=== PATIENT | female | born 1945 | race Caucasian/White ===

== ENCOUNTER 2023-06-04 12:37 | Emergency (ER) | payer OTHER, SELFPAY ==
[2023-06-04 12:49] VITALS: BP 124/46; BP 133/98; PULSE 62; PULSE 68; RESP 16; TEMP 37.1; O2SAT 100; O2SAT 94; BMI 22.3
--- NOTE | 2023-06-04 12:55 | ECG_ITS ---
Test Reason : siezure Blood Pressure : / mmHG Vent. Rate : 061 BPM Atrial Rate : 061 BPM P-R Int : 132 ms QRS Dur : 070 ms QT Int : 440 ms P-R-T Axes : 060 029 009 degrees QTc Int : 442 ms Normal sinus rhythm with sinus arrhythmia Low voltage QRS Borderline ECG No previous ECGs available Referred By: Chandler Campuzano Electronically Signed By:MENDEL ANGEL MD
--- NOTE | 2023-06-04 13:00 | PC.NURSE ---
Addendum entered by Jose Ceja 06/04/23 14:44: refuses iv placement. pt straight cathed per order. Original Note: pt arrived via ems from adult day care where they reported found pt foaming from mouth eyes rolled back; duration approx 60 seconds. pt returned to baseline orientation following event. alert and oriented to self. neuros intact. vss. respirations even and unlabored. nsr on monitor 60 bpm. sats 98% RA. md to bedside. to bedside. seizure precautions in place. call stubbs within reach.
--- NOTE | 2023-06-04 13:30 | ED.GENADULT ---
HPI - General Adult General Chief complaint: Seizure Stated complaint: ?SZ@ ADULT DAY CARE PER EMS Time Seen by Provider: 06/04/23 12:43 Source: patient, family and EMS Mode of arrival: EMS Limitations: other (Dementia) History of Present Illness HPI narrative: 78-year-old female with history of seizure disorder, dementia presents with possible seizure. She was at her adult daycare when she was witnessed mildly collapse caught by another individual there was no trauma and had a 1 minute episode of unresponsiveness with foaming at the mouth. There is no tonic clonic movement. After about 1 minute, patient came to with no apparent postictal confusion. There is no loss of bowel or bladder control. There is no tongue biting. Previous episodes according to has been included blank spells for short period of time. In 2019 she was placed on Keppra and since then she has had no reported seizure activity. Patient has had no fevers or chills. There has been no cough or congestion. She has had no change in urination habits. There has been no diarrhea. She has been eating appropriately. She is taking her medications. Her symptoms are described to EMS is moderate nature. She denies any pain. Related Data Allergies Allergy/AdvReac Type Severity Reaction Status Date / Time azithromycin Allergy Unknown Verified 06/04/23 12:49 Review of Systems Review of Systems: CONSTITUTIONAL: Denies weight loss, fever and chills. HEENT: Denies changes in vision and hearing. RESPIRATORY: Denies SOB and cough. CV: Denies palpitations no CP. GI: Denies abdominal pain, nausea, vomiting and diarrhea. : Denies dysuria and urinary frequency. MSK: Denies myalgia and joint pain. SKIN: Denies rash and pruritus. NEUROLOGICAL: Denies headache and syncope. PSYCHIATRIC: Denies recent changes in mood. Denies anxiety and depression. All other ROS are negative unless in HPI PMFSH Social History Social History Advance Directives: Yes Advance Directives Information Provided: Yes Advance Directives on File: No Physical Exam ED Vital Signs: Vital Signs - 24 hr 06/04/23 12:49 Temperature 98.8 F Pulse Rate 68 Respiratory Rate 16 Blood Pressure 124/46 L Pulse Oximetry 94 Oxygen Delivery Method Room Air BMI result Body Mass Index 22.3 GEN: Well developed, no acute distress, alert, disoriented HEENT: Normocephalic, atraumatic, normal external ears, nose appears normal, no oropharyngeal edema or exudates Eyes: Normal to appearance Neck: Supple, no lymphadenopathy Respiratory: Talks in complete sentences, no respiratory distress, clear to auscultation bilaterally Cardiovascular: Regular rate and rhythm, no murmurs rubs or gallops Abdomen: Soft, nontender, nondistended, no guarding, no rebound Back: No CVA tenderness Extremities: No clubbing cyanosis or edema Neurologic: No focal neurologic deficits, cranial nerves 2-12 intact, strength is 5/5 bilaterally Skin: No rash Course Course Course Narrative: The workup is complete at this time. This CBC clotted and does not wish any additional blood work to be performed. I do suspect patient actually had a seizure. I do not believe this was a syncopal event. Patient will continue her usual dosages of medication. She will follow-up with her neurologist. is aware we did not get a CBC and we may be missing a diagnosis of anemia. He is comfortable with taking the patient home at this time. He is aware that he can return for any worsening or concerning symptoms. Medical Decision Making Medical Decision Making [facility] Narrative: 70-year-old female presents with possible seizure. She has a history of seizure disorder. She had a brief episode where she was unresponsive with foaming at the mouth. This does not sound like syncope. However, will get an EKG and 1 set of cardiac enzymes to make sure that this does not appear to be a cardiac event. Patient is on Keppra. She is compliant with her medications. She is followed by Neurology. On exam she is alert, disoriented, no focal deficits. There is no meningeal irritation with a negative Kernig and Brudzinski sign. Differential diagnosis includes electrolyte abnormality, hyponatremia, hypoglycemia, breakthrough seizure, wrist through suture of medication, urinary tract infection. Plan will be to check routine laboratory analysis, urinalysis. There is no indication for CT scan of head is there is no trauma and she has history of seizure disorder. All care was discussed with the patient and her . Differential Diagnosis Differential Diagnoses: The differential diagnosis associated with the presentation includes (See above) Admission/Observation Consideration of admission/observation: Escalation of care including admission/observation considered Lab Data [facility] Lab Attestation statement: I reviewed the patient's lab results. 06/04/23 14:17 06/04/23 14:17 Labs: Lab Results 06/04/23 06/04/23 06/04/23 Range/Units 13:27 14:17 14:17 Sodium 143 (135-145) mmol/L Potassium 4.7 (3.3-5.1) mmol/L Chloride 109 H (96-108) mmol/L Carbon Dioxide 26 (22-29) mmol/L Anion Gap 13 (12-20) BUN 24 H (9-16) mg/dL Creatinine 1.01 (0.5-1.4) mg/dL Estim Creat Clear Calc 39.6 Estimated GFR 53 Random Glucose 95 (60-115) mg/dL Calcium 9.1 (8.4-10.2) mg/dL Troponin I High Sens 4.5 (<3.5-17.0) ng/L Urine Color Dark Yellow Urine Appearance Clear Urine pH 6.0 (5.0-9.0) Ur Specific [place] >= 1.030 H (1.005-1.025) Urine Protein 30 (1+) H (Neg-Trace) mg/dL Urine Glucose (UA) Negative (Negative) mg/dL Urine Ketones Trace (Negative) mg/dL Urine Blood Negative (Negative) Urine Nitrite Negative (Negative) Ur Leukocyte Esterase Negative (Negative) Urine RBC 3-5 H (0-2) /HPF Urine WBC 0-5 (0-5) /HPF Ur Squamous Epith Cells 3-5 (0-2) /HPF Urine Bacteria None Seen (None Seen) Hyaline Casts 11-20 (0-2) /LPF 06/04/23 Range/Units 14:17 Sodium (135-145) mmol/L Potassium (3.3-5.1) mmol/L Chloride (96-108) mmol/L Carbon Dioxide (22-29) mmol/L Anion Gap (12-20) BUN (9-16) mg/dL Creatinine (0.5-1.4) mg/dL Estim Creat Clear Calc Estimated GFR Random Glucose (60-115) mg/dL Calcium (8.4-10.2) mg/dL Troponin I High Sens Cancelled (<3.5-17.0) ng/L Urine Color Urine Appearance Urine pH (5.0-9.0) Ur Specific [place] (1.005-1.025) Urine Protein (Neg-Trace) mg/dL Urine Glucose (UA) (Negative) mg/dL Urine Ketones (Negative) mg/dL Urine Blood (Negative) Urine Nitrite (Negative) Ur Leukocyte Esterase (Negative) Urine RBC (0-2) /HPF Urine WBC (0-5) /HPF Ur Squamous Epith Cells (0-2) /HPF Urine Bacteria (None Seen) Hyaline Casts (0-2) /LPF Independent Interpretation I performed an independent interpretation of an: EKG (Normal sinus rhythm heart rate 61, low voltage, no acute ST elevations depressions, no comparison) Independent Historian Clinical information obtained from an independent historian. History obtained from or confirmed by: Spouse and EMS Prescription Management I considered prescription management with: Antibiotic Discharge Plan Discharge Clinical Impression: Seizure Patient Disposition: Home, Self-Care Instructions: Recurrent Seizures in Adults (ED) Referrals: Ruiz Hollis MD [Primary Care Provider] - 5 days Jerica Larkin MD [Physician] - 1 week
[2023-06-04 13:38] LABS: Appearance Urine Clear; Color Urine Dark Yellow; Glucose Urine UA Negative (Negative); Leukocyte Esterase Urine Negative (Negative); Nitrite Urine Negative (Negative); Specific Gravity - Urine >= 1.030 (1.005-1.025); UMIC TRIGGER UACC YES; Urine Blood Negative (Negative); Urine Ketones Trace mg/dL (Negative); Urine Protein 30 (1+) mg/dL (Neg-Trace)
[2023-06-04 13:49] LABS: Bacteria Urine None Seen (None Seen); WBC Urine 0-5 /HPF (0-5)
[2023-06-04 14:44] LABS: Anion Gap 13 (12-20); Blood Urea Nitrogen 24 mg/dL (9-16); Calcium 9.1 mg/dL (8.4-10.2); Carbon Dioxide 26 mmol/L (22-29); Chloride 109 mmol/L (96-108); Creatinine Clr Calc Pharmacy 39.6; Estimated Glomerular Filt Rate 53; Glucose Random 95 mg/dL (60-115); Potassium 4.7 mmol/L (3.3-5.1); Sodium 143 mmol/L (135-145)
[2023-06-04 14:50] LABS: Troponin-I High Sensitivity 4.5 ng/L (<3.5-17.0)
[2023-06-08 09:03] LABS: Levetiracetam Keppra 38.9 mcg/mL (6.0-46.0)
== END 2023-06-04 15:57 | disposition home or self-care (01) ==
PROVIDERS: Emergency Provider Emergency Medicine; PCP Internal Medicine
DX: R56.9 Unspecified convulsions (principal); R40.4 Transient alteration of awareness
CPT/HCPCS: 36415; 80048; 80177; 81001; 84484; 93005; 99283; 99284

== ENCOUNTER → 2023-06-04 12:55 | Outpatient (BNV) | payer OTHER, SELFPAY | PROVIDERS: Emergency Provider Emergency Medicine; PCP Internal Medicine; Visit Provider Internal Medicine Cardiovascular Disease | DX: G40.89 Other seizures (principal) | CPT/HCPCS: 93010 ==

== ENCOUNTER 2025-05-27 13:55 | Outpatient (AMB) | payer OTHER, SELFPAY ==
--- NOTE | 2025-05-27 14:16 | MHC.OFFVIS ---
Intake Visit Reasons: 6M Allergies azithromycin Allergy (Verified 06/04/23 12:49) Unknown Medication List - Last Reconciled 05/27/25 by Jerica Larkin MD levetiracetam 500 mg PO BID levothyroxine 50 mcg PO DAILY midodrine 2.5 mg PO BID montelukast 10 mg PO DAILY simvastatin 20 mg PO BEDTIME HPI Comments Details: 80 years old with severe dementia she and probably complex partial seizure disorder resulting in periods of confusion. She was mumbling and rarely said a sentence. She was urinating more often, sleeping or dozing off frequently, but did not have any seizure like spells. Overall, said that she was stable or better. [facility] Medical History (Updated 05/27/25 @ 14:19 by Jerica Larkin MD) Severe dementia Complex partial seizures Seizure disorder Alzheimer disease Review of Systems Const Details: Unable to do with a ? Physical Exam Neuro Other: she is alert and awake mumbling not able to produce any word or comprehend. She was in a wheelchair. There was no obvious abnormal movements. Assessment & Plan Assessment & Plan (1) Alzheimer dementia: Comment: CT brain WO CT brain at [facility] in Nov 2020: mod to severe FPT atrophy MRI brain WO at [facility] in 2019: mod to severe atrophy. Code(s): G30.9 - Alzheimer's disease, unspecified; F02.80 - Dementia in other diseases classified elsewhere, unspecified severity, without behavioral disturbance, psychotic disturbance, mood disturbance, and anxiety Category: Medical Qualifiers: Alzheimer's disease onset: late onset Dementia severity: severe Dementia behavioral or psychological symptom: with other behavioral disturbance Qualified Code(s): G30.1 - Alzheimer's disease with late onset; F02.C18 - Dementia in other diseases classified elsewhere, severe, with other behavioral disturbance Plan Impression: a: Severe dementia, probably of Alzheimer type 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 c: Probabaly complex partial seizure disorder Rec: a: Levetiracetam 500mg tid b: Memantine and donepezil did not make much difference and were stopped c: EEG to r/o epileptic encephalopathy Orders: Orders EEG ambulatory Today G40.909 - Epilepsy, unspecified, not intractable, without status epilepticus Medications: New levetiracetam 500 mg PO TID 270 tabs 1RF Coding Level of Care Code Est Pt Level 4 (89130) Diagnoses Severe late onset Alzheimer's dementia with other behavioral disturbance G30.1; F02.C18 Alzheimer's disease onset: late onset Dementia severity: severe Dementia behavioral or psychological symptom: with other behavioral disturbance
--- OUTSIDE RECORDS SUMMARY | 2025-05-27 14:39 | XMS_ITS | Clinical Summary ---
Author Organization [facility] Address [address] [place] [address] Care Team Providers Care Spinning Bath Patroller Name Role Phone Ruiz Hollis MD Primary Care Provider Unavailab le Allergies Active Allergy Reactions Criticality Noted Date Comments Azithromycin Rash Low 05/02/2020 Medications Medication Sig Dispensed Refills Start Date End Date Status donepezil (ARICEPT) 5 MG tablet Take 2 tablets (10 mg total) by mouth every night at bedtime. 0 Active simvastatin (ZOCOR) tablet 20 mg Take 1 tablet (20 mg total) by mouth every night at bedtime. 0 Active levothyroxine (SYNTHROID, LEVOXYL) tablet 50 mcg Take 1 tablet (50 mcg total) by mouth every morning on an empty stomach. 0 Active budesonide (PULMICORT) 0.5 MG/2ML nebulizer solution Take 2 mL (0.5 mg total) by nebulization daily. 0 Active ipratropium-albuter ol (DUO-NEB) 0.5-2.5 mg/mL nebulizer Inhale 3 mL into the lungs. 0 Active albuterol (PROVENTIL) (2.5 MG/3ML) 0.083% nebulizer solution Take 3 mL (2.5 mg total) by nebulization every 6 (six) hours as needed for wheezing. 0 Active Nebulizers (MY MDI PORTABLE NEBULISER) MISC by Does not apply route. 0 Active midodrine (PROAMATINE) 2.5 MG tablet Take 1 tablet (2.5 mg total) by mouth 2 (two) times a day. 0 Active Cyanocobalamin (VITAMIN B 12) 500 MCG TABS Take 1,000 mcg by mouth once. 0 Active levETIRAcetam (KEPPRA) 500 MG tablet TAKE 1 TABLET BY MOUTH IN THE MORNING AND 2 TABLETS AT BEDTIME 0 07/23/2023 Active montelukast (SINGULAIR) 10 MG tablet Take 1 tablet (10 mg total) by mouth every night at bedtime. 0 07/28/2023 Active Active Problems Problem Noted Date Diagnosed Date Other iron deficiency anemias 07/11/2023 Social History Tobacco Use Types Packs/Day Years Used Date Smoking Tobacco: Former Smokeless Tobacco: Never Alcohol Use Standard Drinks/Week Comments No 0 (1 standard drink = 0.6 oz pur e alcohol) Sex and Gender Information Value Date Recorded Sex Assigned at Female 08/01/2023 4:36 PM EDT Gender Identity Not on file Sexual Orientation Not on file Job Start Date Occupation Industry Not on file Not on file Not on file Last Filed Vital Signs Vital Sign Reading Time Taken Comments Blood Pressure 126/53 08/12/2023 12:59 PM EDT Pulse 67 08/12/2023 12:58 PM EDT Temperature 36.6 C (97.9 F) 08/12/2023 12:58 PM EDT Respiratory Rate 18 08/08/2023 12:56 PM EDT Oxygen Saturation 99% 08/12/2023 12:58 PM EDT Inhaled Oxygen Concentration - - Weight 57.9 kg (127 lb 9.6 oz) 08/08/2023 12:57 PM EDT Height 154.9 cm (5' 1 ) 08/08/2023 12:57 PM EDT Body Mass Index 24.11 08/08/2023 12:57 PM EDT Plan of Treatment Health Maintenance Due Date Last Done Comments COVID-19 Vaccine (#1) 1945 Depression Screening 1957 Preventative Health Evaluation 1963 Shingrix-Zoster Vaccine (1 o f 2) 1995 Fall Risk Assessment 2010 Osteoporosis Screening (DEXA Scan) 2010 RSV Adult > 60+ Yrs or (1 - 1-dose 75+ series) 2020 Pneumococcal Vaccine (3 of 3 - PPSV23 or PCV20) 07/26/2020 07/26/2015, 05/21/2000 Influenza Vaccine (#1) 2025 7, 07/21/2014 DTap / Tdap / Td (3 - Td or Tdap) 11/02/2031 11/02/2021, 02/02/2011 Hepatitis B Vaccines Aged Out No long er eligible based on patient's age to complete this topic RSV Ped < 20 months Aged Out No longe r eligible based on patient's age to complete this topic Care Teams Spinning Bath Patroller Relationship Specialty Start Date End Date Ruiz Hollis MD PCP - General Internal Medicine 04/06/20
--- OUTSIDE RECORDS SUMMARY | 2025-05-27 14:39 | XMS_ITS | Clinical Summary ---
Author Organization 175 [facility] Address [address] [place] [address] Phone Care Team Providers Care Waist Presser Name Role Phone Ruiz Hollis MD Primary Care Provider [phone] Allergies Active Allergy Reactions Criticality Noted Date Comments Azithromycin Rash Low 08/25/2013 Medications ipratropium-al buteroL (DUONEB) 0.5-2.5 mg/3 mL nebulizer solution USE 1 AMPULE IN NEBULIZER EVERY 6 HOURS NEEDED FOR WHEEZING FOR UP TO 30 DAYS 06/09/20 24 Active diaper,brief,a dult,disposabl e (Depend Underwear For Women Lrg) misc 1 Each by Does not apply route 2 times daily. 01/21/20 24 Active nut.tx.gluc intol,lf,soy/f iber (BOOST GLUCOSE CONTROL ORAL) Nutritional Supplements (Boost Glucose Control) Liquid Patient sig: Take 1 Each by mouth 2 Times Daily. 01/06/20 24 Active levETIRAcetam (KEPPRA) 500 mg tablet Take 1 Tablet by mouth every morning. Active donepeziL (ARICEPT) 10 mg tablet Take 1 Tablet by mouth at bedtime. 02/27/20 23 Active polyethylene glycol 3350 (MIRALAX ORAL) Take 17 g by mouth daily for 30 days. 08/21/20 22 Active ammonium lactate (LAC-HYDRIN) 12 % lotion Apply to soles of feet daily. At night wear socks to bed 01/12/20 22 Active cyanocobalamin , vitamin B-12, (VITAMIN B-12 ORAL) Take by mouth. 1000 mg daily Active albuterol 2.5 mg /3 mL (0.083 %) nebulizer solution USE 1 VIAL IN NEBULIZER EVERY 4 HOURS NEEDED FOR WHEEZING 05/11/20 Active inhalational spacing device (Aerochamber MV) inhaler 1 Device by Does not apply route as needed (4x a day prn). 04/13/20 19 Active nebulizers misc 1 Units by Does not apply route 4 times daily as needed (sob). 04/01/20 Active triamcinolone (KENALOG) 0.1 % cream Apply topically 2 (two) times a day. Active budesonide (PULMICORT) 0.5 mg/2 mL nebulizer solution Take 2 mL (0.5 mg total) by nebulization 1 (one) time each day. Rinse mouth with water after use to reduce aftertaste and incidence of candidiasis. Do not swallow. Active mometasone (ELOCON) 0.1 % ointment APPLY TOPICALLY ONE-HALF OF A FINGERTIP AMOUNT OF CREAM TO THE VULVA TWICE A WEEK DIRECTED BY THE DOCTOR 15 g 02/02/20 25 Active montelukast (SINGULAIR) 10 mg tablet Take 1 tablet (10 mg total) by mouth at bedtime. at bedtime. 30 each 5 03/03/20 25 025 Active ProAir RespiClick 90 mcg/actuation aerosol powdr breath activated INHALE 2 PUFFS BY MOUTH EVERY 4 TO 6 HOURS NEEDED. NOT TO EXCEED 12 INHALATIONS 1 each 03/25/20 25 Active midodrine (PROAMATINE) 2.5 mg tablet Take 1 tablet by mouth twice daily 180 tablet 05/10/20 25 Active simvastatin (ZOCOR) 20 mg tablet TAKE 1 TABLET BY MOUTH AT BEDTIME 90 tablet 05/17/20 25 Active levothyroxine (SYNTHROID, LEVOTHROID) 50 mcg tablet Take 1 tablet by mouth once daily 90 tablet 05/17/20 25 Active simvastatin (ZOCOR) 20 mg tablet Take 1 tablet (20 mg total) by mouth at bedtime. at bedtime. 90 tablet 1 11/23/19 25 025 Discontinued midodrine (PROAMATINE) 2.5 mg tablet Take 1 tablet by mouth twice daily 180 tablet 1 01/12/20 25 025 Discontinued levothyroxine (SYNTHROID, LEVOTHROID) 50 mcg tablet Take 1 tablet (50 mcg total) by mouth 1 (one) time each day. 90 tablet 1 01/13/20 25 025 Discontinued Active Problems Problem Noted Date Diagnosed Date Sleep-related hypoxia 02/23/2022 Exercise hypoxemia 01/30/2022 Late onset Alzheimer's disea se without behavioral disturbance ([facility] V24, [facility] V28) 01/30/2022 Assessment & Plan (01/21/2025 11:09 AM EDT): Appears stable off Aricept. Orders: CBC and differential; Future Comprehensive metabolic panel; Future Lipid panel with reflex to direct LDL; Future Thyroid stimulating hormone; Future Lichen sclerosus 08/23/2021 Chronic gastrointestinal hemorrhage 01/19/2021 Idiopathic hypotension 12/27/2020 Assessment & Plan (01/21/2025 10:52 AM EDT): Stable on as needed midodrine. Orders: CBC and differential; Future Comprehensive metabolic panel; Future Lipid panel with reflex to direct LDL; Future Thyroid stimulating hormone; Future Iron deficiency anemia due to chronic blood loss 12/27/2020 Chronic obstructive pulmonar y disease with acute exacerbation ([facility] V24, [facility] V28) 04/01/2019 Assessment & Plan (01/21/2025 10:52 AM EDT): . Stable on current Singulair. Orders: CBC and differential; Future Comprehensive metabolic panel; Future Lipid panel with reflex to direct LDL; Future Thyroid stimulating hormone; Future PLMD (periodic limb movement disorder) 9 Hypothyroidism 11/13/2018 Assessment & Plan (01/21/2025 10:52 AM EDT): Stable on Synthroid. Orders: CBC and differential; Future Comprehensive metabolic panel; Future Lipid panel with reflex to direct LDL; Future Thyroid stimulating hormone; Future Hyperlipidemia 07/21/2018 Assessment & Plan (01/21/2025 10:52 AM EDT): Stable on simvastatin. Orders: CBC and differential; Future Comprehensive metabolic panel; Future Lipid panel with reflex to direct LDL; Future Thyroid stimulating hormone; Future Pulmonary emphysema ([facility] V24, [facility] V28) 0 06/27/2018 Memory change 04/09/2018 Anxiety 10/12/2016 Aortic atherosclerosis ([facility] V24) 10/12/2016 Overview (08/24/2024): Comments: CT 03/25/14 atherosclerotic calcifications of thoracic aorta Osteopenia 07/10/2016 Eczema 07/26/2015 Encounters Date Type Department Care Team Description 05/20/2025 Telephone Internal Medicine - [place] [facility] [address] [place] [address] Ruiz Hollis MD Referral (Neurology Insurance Referral) 04/26/2025 Telephone Internal Medicine - [place] 175 [facility] [address] [place] [address] Bela Glynn [place] faxed order ([place]) 03/23/2025 2:15 PM EDT Office Visit Orthopedic Surgery [facility] [address] [facility] [address] [place] [address] Jc Lopez DPM Dermatophytosis of nail (Primary Dx); Xerosis of skin; Ingrowing nail 03/03/2025 Telephone Pulmonolgy - [place] 175 [facility] [address] [place] [address] Alex Villalobos MD Medication Visit from Last 3 Months Immunizations Name Administration Dates Next Due Influenza trivalent, 0.5mL ( Fluad) 65yo and older 08/23/2017,07/21/2014 Influenza trivalent, 0.5mL, preservative free (Fluarix; FluLaval; Fluzone) ages 6mo and older (Afluria) 3 years and older 09/28/2013,08/01/2011,08/02/2010 Moderna SARS-CoV-2 COVID-19, mRNA, LNP-S, preservative free 08/30/2022,02/27/2022,01/13/2021,12/16 Pneumococcal conjugate 13 va lent (Prevnar 13, PCV13) 2mo and older 07/26/2015 Pneumococcal polysaccharide 23 valent (Pneumovax 23) 2yo and older 05/21/2000 Td Tetanus diptheria (Tdvax) 7yo and older 05/21/2000 Tdap Tetanus diptheria acell ular pertussis (Boostrix; Adacel) 7yo and older 11/02/2021,02/02/2011 Surgical History Surgery Date Site/Laterality Comments COLONOSCOPY PROCEDURE: HISTORICAL COLONOSCOPY COLONOSCOPY PROCEDURE: HISTORICAL COLONOSCOPY UPPER GASTROINTESTINAL ENDOSCOPY PROCEDURE: MT UPPER GI ENDOSCOPY PERFORMED APPENDECTOMY PROCEDURE: HISTORICAL APPENDECTOMY HYSTERECTOMY PROCEDURE: HISTORICAL HYSTERECTOMY APPENDECTOMY PROCEDURE: MT APPENDECTOMY Medical History Medical History Date Comments Diabetes mellitus type 2, uncomplicated ([facility] V24, [facility] V28) 10/12/2016 DX:Diabetes mellitus type 2, uncomplicated ([facility]) Hypothyroidism 11/13/2018 DX:Hypothyroidis m Anxiety 10/12/2016 DX:Anxiety Aortic atherosclerosis ([facility] V24) 10/12/2016 DX:Aortic atherosclerosis ([facility]); COMMENT: Comments: CT 03/25/14 atherosclerotic calcifications of thoracic aorta Eczema 07/26/2015 DX:Eczema History of colon polyps 04/19/2016 DX:Histo ry of colon polyps Hyperlipidemia 07/21/2018 DX:Hyperlipidemi a Memory change 04/09/2018 DX:Memory change Osteopenia 07/10/2016 DX:Osteopenia Pulmonary emphysema ([facility] V24, [facility] V28) 06/27/2018 DX:Pulmonary emphysema ([facility]) Family History Medical History Relation Name Comments Breast cancer Sister Relation Name Status Comments Sister Social History Tobacco Use Types Packs/Day Years Used Date Smoking Tobacco: Former Cigarettes 1 68.5 S tarted: 11/11/1956 Smokeless Tobacco: Never Alcohol Use Standard Drinks/Week Comments No 0 (1 standard drink = 0.6 oz pur e alcohol) Comments Unknown Sex and Gender Information Value Date Recorded Sex Assigned at Not on file Legal Sex Female 1:19 AM EST Gender Identity Not on file Sexual Orientation Not on file Obstetrics History Last Filed Vital Signs Vital Sign Reading Time Taken Comments Blood Pressure 102/52 02/16/2025 2:21 PM EDT Pulse 71 01/21/2025 9:54 AM EDT Temperature 35.9 C (96.7 F) 02/16/2025 2:21 PM EDT Respiratory Rate - - Oxygen Saturation 97% 02/16/2025 2:21 PM EDT Inhaled Oxygen Concentration - - Weight 54.9 kg (121 lb) 02/16/2025 2:21 PM EDT Height 152.4 cm (5') 01/21/2025 9:54 AM EDT Body Mass Index 23.63 01/21/2025 9:54 AM EDT Plan of Treatment Upcoming Encounters Date Type Department Care Team (Late st Contact Info) Description 06/22/2025 1:30 PM EDT Office Visit Orthopedic Surgery - [place] 250 [address] [facility] [address] [place] [phone] Jc Lopez DPM [address] [address] 07/28/2025 1:00 PM EDT Office Visit Internal Medicine - [place] 175 [facility] [address] [place] [phone] Ruiz Hollis MD [address] [address] 02/17/2026 11:30 AM EDT Office Visit Pulmonolgy - [place] 175 [facility] [address] [place] [phone] Alex Villalobos MD [address] [address] Health Maintenance Due Date Last Done Comments Colorectal Cancer Screening: Stool Based Tests (FOBT/FIT) 10/20/2022 Osteoporosis Screening (Bone Density Screening) 10/20/2022 Social Influencers of Health Screening 10/20/2022 COVID-19 Vaccine ( season) 2025 07/21/2024, 08/28/2023, 08/30/2022, Additional history exists Influenza Vaccine (#1) 2025 , 08/17/2023, 07/26/2022, Additional history exists Depression Screening 01/21/2026 01/21/2025 Falls Risk Assessment 01/21/2026 01/21/2025 Medicare Annual Wellness Visit 01/21/2026 01/21/2025 Cholesterol Screening (Lipid Panel) 01/21/2030 01/21/2025, 08/28/2024, 02/05/2023 DTaP,Tdap,and Td Vaccines (4 - Td or Tdap) 11/02/2031 11/02/2021, 02/02/2011, 05/21/2000 Zoster Vaccines Completed 12/14/2021, 05/12/2021 Pneumococcal Vaccine: 50+ Years Completed 07/26/2022, 07/14/2020, 07/26/2015, Additional history exists RSV Immunization Adult Patients Completed 04/10/2024 HIB Vaccines Aged Out No longer eligi ble based on patient's age to complete this topic HPV Vaccines Aged Out No longer eligi ble based on patient's age to complete this topic Hepatitis A Vaccines Aged Out No long er eligible based on patient's age to complete this topic Hepatitis B Vaccines Aged Out No long er eligible based on patient's age to complete this topic IPV Vaccines Aged Out No longer eligi ble based on patient's age to complete this topic MMR Vaccines Aged Out No longer eligi ble based on patient's age to complete this topic Meningococcal ACWY Vaccine Aged Out N o longer eligible based on patient's age to complete this topic Meningococcal B Vaccine Aged Out No l onger eligible based on patient's age to complete this topic RSV Immunization Patients Under 20 months Aged Out No longer eligible based on patient's age to complete this topic Varicella Vaccines Aged Out No longer eligible based on patient's age to complete this topic Procedures Procedure Name Priority Date/Time Associated Diagnosis Comments LIPID PANEL WITH REFLEX TO DIRECT LDL Routine 01/21/2025 11:28 AM EDT Late onset Alzheimer's disease without behavioral disturbance ([facility] V24, [facility] V28) Chronic obstructive pulmonary disease with acute exacerbation ([facility] V24, [facility] V28) Pure hypercholesterolemia Idiopathic hypotension Acquired hypothyroidism from Last 3 Months or Most Recently Relevant to Health Maintenance Results * (ABNORMAL) Lipid panel with reflex to direct LDL (01/21/2025 11:28 AM EDT) [facility] Signature Cholesterol 187 0 - 200 mg/dL LAB CHEMISTRY METHOD 01/21/2025 2:24 PM EDT [facility] Triglycerides 107 0 - 150 mg/dL LAB CHEMISTRY METHOD 01/21/2025 2:24 PM EDT [facility] HDL 55 >=40 mg/dL LAB CHEMISTRY METHOD 01/21/2025 2:24 PM EDT [facility] LDL Calculated 111(H) 0 - 100 mg/dL LAB CHEMISTRY METHOD 01/21/2025 2:24 PM EDT [facility] VLDL Cholesterol [place] 21.4 mg/dL LAB CHEMISTRY METHOD 01/21/2025 2:24 PM EDT [facility] Non HDL Chol. (LDL+VLDL) 132 <145 mg/dL LAB CHEMISTRY METHOD 01/21/2025 2:24 PM EDT [facility] Chol/HDL Ratio 3.4 0.0 - 4.4 LAB CHEMISTRY METHOD 01/21/2025 2:24 PM EDT [facility] Blood Venous blood specimen / Unknown Venipuncture / Unknown 01/21/2025 11:28 AM EDT 01/21/2025 12:47 PM EDT us Ruiz Hollis MD LAB BLOOD ORDERABLES Final Resul t [facility] [address] [place] [address], from Last 3 Months or Most Recently Relevant to Health Maintenance Insurance MEDICA[place] - [place] [employer] [employer] Care Teams Waist Presser Relationship Specialty Start Date End Date Ruiz Hollis MD 175 [facility] [address] [place] [address] PCP - General Internal Medicine 10/23/18
--- OUTSIDE RECORDS SUMMARY | 2025-05-27 14:39 | XMS_ITS | Data Portability ---
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 Her , who is her care provider also feels she is well and symptoms have resolved. Concerns for COVID were expressed as patient had shortness of breath and eye discharge. This seems reasonable. Pt remained pleasantly confused with repetitive sentences constantly. Not available 10/04/2020 15:54:48 10/05/2020 10/05/2020 Overview/History : 75 y/o F with PMHx sig for dementia, asthma, COPD, and DVT not on A/C, who presents w/ c/o bilateral eyelid swelling and watery eye discharge x2 days. evaluated her for this yesterday but symptoms had resolved. Per her she wakes up in the AM and states she cannot open her eyes because her eyelids are painful and swollen and there is a build up of watery discharge. No vision changes or vision loss. No ropey discharge or crusting. No eye pain or painful eye movement. No headache, nasal congestion, fevers, cough, or sob. No sensitivity to light. Had remote cataract surgery. Exam: afebrile, RRR, normotensive, normal resps, O2 sat 98% on RA, non-toxic, well appearing. GENERAL: well developed, well nourished, appears stated age, sitting comfortably in no acute distress. HEENT: normocephalic, atraumatic, sinuses nontender, subtle proptosis, PERRLA, EOMI without pain, sclera anicteric, no conjunctival injection or foreign body, minimal palpebral edema b/l with watery discharge, nares patent, septum midline, mmm. NECK: trachea midline, no masses, or thyromegaly. RESP: normal I:E, clear to auscultation bilaterally, no wheezes, rhonchi, or rales. CARDIO: RRR, normal S1, S2, no murmurs, rubs, or gallops, radial pulse 2+. DDx considered, but not limited to: acute angle closure glaucoma - unlikely, no globe pain, no steamy cornea, no worse in dark foreign body - unlikely, none visualized, sxs remit conjunctivitis - unlikely, no conjunctival injection corneal abrasion - unlikely, no injury or globe pain URI - unlikely, afebrile, no other sxs blepharitis - most consistent with sxs, worse in AM, no signs of infection, and sxs improve with warm compress Work up/Results: COVID test still pending from yesterday. Plan/Discussion: Likely blepharitis. Warm compresses, lid hygeine, lid massage. Follow up with dry kiln burner in 3-5 days. Call for new or worsening sxs. Will call with COVID results. No quarantine recommendation for asymptomatic low risk patient. Thank you for your visit with [employer] today. We cannot always find the exact cause of your symptoms during your initial visit. Please follow up with your primary care provider or specialist to be rechecked or seek medical attention if your symptoms do not go away or get worse. If you develop any new or worsening symptoms and need after hours care, please go to nearest ER and/or call 911. If you have additional concerns or develop a change in your condition between 8am-10pm, please [facility] at [phone] to help navigate your care. In order to obtain further information and compare any laboratory results/values, I have accessed old patient records. This information was pertinent in my medical decision making today. viri Not available 10/05/2020 11:06:13 09/02/2022 09/02/2022 Time On Scene with Patient: 00:49:01 DDX: Pneumonia, COPD exacerbation, bronchitis, viral illness. Pt is cared for exclusively by her who is her POA and HCP. Pt having increased coughing and congestion. Pt was given an updraft before arrival that seems to have helped significantly. She appears in NAD but continued congested cough. At this time is seems reasonable to start her on prednisone for a short burst. Otherwise, reviewed how give her updraft medications with the and reasons to call 911 with any symptoms. Pt sitting on her chair in NAD. Resp easy. Not available 09/02/2022 19:54:53 Plan of Treatment Reminders Order Date Submit Date Provider Last Modified By Organization Details Last Modified Time Details Appointments None recorded. Lab SARS CoV 2 RNA (COVID-19), QL, manufacturing engineer paint-PCR, respiratory specimen 2019 020 [place] [facility] (Centralized Electronic Ordering - All Locations), Patient Can Go To The Location Of Their Choice, [id number] 0 08:01:13 Referral None recorded. Procedures None recorded. Surgeries None recorded. Imaging None recorded. Medication Orders prednisone 20 mg tablet 2021 022 [email or web address] [facility], [address] [place] [address], [place], [address], 19:09:08 Patient TargetsNo targets recorded. Patient Instructions Encounter Date Encounter Id Patient Instructions Last Modified By Organization Details Last Modified Time 10/04/2020 [id number] Dis. arnel alaniz came to the home to evaluate you for crusted eyes and a cough this morning. She feels better after an updraft. The eyes look good and do not need intervention. WE tested Nieves for COVID. Otherwise, she appears to be doing well . Please continue with treatment as you have been doing. If you notice any further symptoms or concerns, please recall us or get her re-evaluated. Thank you for your visit with [employer] today. We cannot always find the exact cause of your symptoms during your initial visit. Please follow up with your primary care provider or specialist to be rechecked or seek medical attention if your symptoms do not go away or get worse. If you develop any new or worsening symptoms and need after hours care, please go to nearest ER and/or call 911. If you have additional concerns or develop a change in your condition between 8am-10pm, please call [facility] at [phone] to help navigate your care. [email or web address] Not available 10/04/2020 14:33:48 09/02/2022 [id number] [facility] came to evaluate Nieves for her breathing issues. She is doing well after her updrafts. She may have bronchitis. Her breathing is going well now. Here is the treatment plan: 1. CONTINUE THE BUDESONIDE UPDRAFTS TWICE A DAY 2. USE THE IPATROPRIUM UPDRAFTS EVERY 4-6 HOURS NEEDED FOR WHEEZING OR COUGHING. GIve her this treatment BEFORE the budesonide. 3. USE THE OXYGEN LIKE SHE NEEDS. 4. TAKE THE PREDNISONE EVERY DAY FOR THE NEXT 5 DAYS. Please follow up with Dr. Villalobos as planned. If you feel she is having more shortness of breath or chest pain, please call 911. [email or web address] Not available 09/02/2022 18:40:47 Reason for Referral None Reported. Results Created Date Observation Date Name Description Value Unit Range Abnormal Flag Note LastModifiedBy Organization Detail LastModifiedTime 10/04/20 20 10/07/2020 SARS CoV 2 RNA (COVI D-19) , QL, manufacturing engineer paint-P CR, respi rator y speci men covid-19, OMAIRA Not Detec migdalia Refer ence range : Not Detec migdalia (NOTE ) This nucle ic acid ampli ficat ion test was devel oped and its perfo rmanc e elier cteri stics deter mined by [facility]. Nucle ic acid ampli ficat ion tests inclu de PCR and TMA. This test has not been FDA clear ed or appro vidya. This test has been autho rized by FDA under an Emerg ency Use Autho rizat ion (EUA) . This test is only autho rized for the durat ion of time the decla ratio n that circu mstan gibran exist justi fying the autho rizat ion of the emerg ency use of in vitro diagn ostic tests for detec tion of SARS- CoV-2 virus and/o r diagn osis of COVID -19 infec tion under secti on 564(b )(1) of the Act, 21 U.S.C . 360bb b-3(b ) (1), unles s the autho lizz ion is termi nated or revok ed soone r. When diagn ostic testi ng is negat ten, the possi bilit y of a false negat ten resul t shoul d be consi dered in the leela xt of a patie nt's recen t expos ures and the prese nce of clini deshaun signs and sympt oms consi stent with COVID -19. An indiv idual witho ut sympt oms of COVID - 19 and who is not ambrose ing SARS- CoV-2 virus would expec t to have a negat ten (not detec migdalia) resul t in this assay . TEST PERFO RMED BY [facility], MOOSE ALLEN Y Not Available [facility] (Centralized Electronic Ordering - All Locations) Patient Can Go To The Location Of Their Choice, [id number] 10/07/2020 08:01:13 Result Notes None recorded. Medical Equipment None Reported. Allergies Allergen ID Allergen Name Allergen Category Reaction Reaction Severity Criticality Documentation Date Start Date Code Code System Note Provider Name and Address Organization Details Recorded Time [id number] Zithromax medicatio n rash Not available Not available 10/04/2020 4 RxNorm GROVER HYMAN, YUSRA [address] [place], [address], [place] - [facility] 0 14:21:56 Medications Name Sig Start Date Stop Date Status Note LastModified by Organization Details LastModified Time ipratropium 0.5 mg-albutero l 3 mg (2.5 mg base)/3 mL nebulizatio n soln USE 1 AMPULE IN NEBULIZER 4 TIMES DAILY active Not Available Not Available No t Available donepezil 5 mg tablet TAKE 1 TABLET BY MOUTH ONCE DAILY WITH LUNCH FOOD active Not Available Not Available No t Available ammonium lactate 12 % lotion APPLY LOTION TOPICALLY TO SOLES OF FEET DAILY . AT NIGHT WEAR SOCKS TO BED active Not Available Not Available No t Available ofloxacin 0.3 % eye drops INSTILL 1 DROP INTO LEFT EYE 4 TIMES DAILY FOR 7 DAYS active Not Available Not Available No t Available levetiracet am 500 mg tablet TAKE 1 TABLET BY MOUTH TWICE DAILY active Not Available Not Available No t Available donepezil 10 mg tablet TAKE 1 TABLET BY MOUTH ONCE DAILY WITH LUNCH active Not Available Not Available No t Available prednisone 20 mg tablet Take 2 tablets every day by oral route for 5 days. active Not Available Not Available No t Available TobraDex 0.3 %-0.1 % eye ointment APPLY 1 2 INCH RIBBON IN THE LEFT EYE IN THE MORNING AND IN THE EVENING FOR 7 TO 10 DAYS active Not Available Not Available No t Available lorazepam 0.5 mg tablet TAKE 1 TABLET BY MOUTH AT BEDTIME NEEDED FOR SLEEP 10/04 completed Not Available Not Available Not Available ascorbic acid (vitamin C) 250 mg chewable tablet CHEW AND SWALLOW 1 TABLET ONCE DAILY active Not Available Not Available No t Available levothyroxi ne 50 mcg tablet TAKE 1 TABLET BY MOUTH ONCE DAILY active Not Available Not Available No t Available pantoprazol e 40 mg tablet,azeb yed release TAKE 1 TABLET BY MOUTH ONCE DAILY active Not Available Not Available No t Available simvastatin 20 mg tablet TAKE 1 TABLET BY MOUTH AT BEDTIME active Not Available Not Available No t Available ferrous sulfate 325 mg (65 mg iron) tablet TAKE 1 TABLET BY MOUTH ONCE DAILY active Not Available Not Available No t Available nystatin 100,000 unit/gram topical cream APPLY CREAM TOPICALLY IN THE MORNING AND IN THE EVENING UNDER BREASTS AND INNER THIGHS active Not Available Not Available No t Available budesonide 0.5 mg/2 mL suspension for nebulizatio n USE 1 VIAL IN NEBULIZER TWICE DAILY active Not Available Not Available No t Available montelukast 10 mg tablet TAKE 1 TABLET BY MOUTH ONCE DAILY AT BEDTIME active Not Available Not Available No t Available mometasone 0.1 % topical ointment APPLY ONE HALF OF A FINGER TIP AMOUNT TO THE VULVA, DIRECTED BY THE DOCTOR TWICE WEEKLY active Not Available Not Available No t Available midodrine 2.5 mg tablet TAKE 1 TABLET BY MOUTH TWICE DAILY active Not Available Not Available No t Available gabapentin 100 mg capsule TAKE 1 TO 2 CAPSULES BY MOUTH EVERY DAY AT BEDTIME 10/04 completed Not Available Not Available Not Available cefuroxime axetil 500 mg tablet TAKE 1 TABLET BY MOUTH TWICE DAILY FOR 7 DAYS active Not Available Not Available No t Available polyethylen e glycol 3350 17 gram/dose oral powder DISSOLVE 17 GRAMS IN 8 OZ BEVERAGE AND DRINK BY MOUTH ONCE DAILY active Not Available Not Available No t Available albuterol sulfate HFA 90 mcg/actuati on aerosol inhaler INHALE 2 PUFFS BY MOUTH EVERY 4 HOURS NEEDED FOR WHEEZE OR SHORTNESS OF BREATH FOR UP TO 30 DAYS active Not Available Not Available No t Available neomycin 3.5 mg/g-polymy anton B 10,000 unit/g-dexa meth 0.1 % eye oint APPLY OINTMENT TO EYELIDS AT BEDTIME DIRECTED BY DOCTOR active Not Available Not Available No t Available Pneumovax-2 3 25 mcg/0.5 mL injection syringe PHARMACIS T ADMINISTE RED IMMUNIZAT ION ADMINISTE RED AT TIME OF DISPENSIN G active Not Available Not Available No t Available memantine 10 mg tablet TAKE ONE HALF TABLET BY MOUTH DAILY IN THE MORNING FOR 1 WEEK THEN TAKE ONE HALF TABLET 2 TIMES DAILY FOR 1 WEEK THEN 1 TABLET IN THE MORNIN active Not Available Not Available No t Available Slow Release Iron 140 mg (45 mg iron) tablet,exte nded release TAKE 1 BY MOUTH ONCE DAILY active Not Available Not Available No t Available Xarelto 15 mg tablet TAKE 1 TABLET BY MOUTH TWICE DAILY WITH FOOD FOR 21 DAYS 10/04 completed Not Available Not Available Not Available Xarelto 20 mg tablet TAKE 1 TABLET BY MOUTH ONCE DAILY START FROM APRIL 20 202010/04 completed Not Available Not Available Not Available ProAir RespiClick 90 mcg/actuati on breath activated INHALE 2 PUFFS BY MOUTH EVERY 4 HOURS NEEDED FOR WHEEZING active Not Available Not Available No t Available Fluzone High-Dose Quad 2020-21 (PF) 240 mcg/0.7 mL IM syringe PHARMACIS T ADMINISTE RED IMMUNIZAT ION ADMINISTE RED AT TIME OF DISPENSIN G active Not Available Not Available No t Available BinaxNOW COVID-19 Ag Self Test kit TEST DIRECTED TODAY active Not Available Not Available No t Available Vitals Date Recorded Body temperature Heart rate Respiratory rate Oxygen saturation Oxygen saturation in Arterial blood by Pulse oximetry Inhaled oxygen flow rate Systolic And Diastolic Provider Name and Address Organization Details Last Updated DateTime 2 97.8 [degF] 76 /min 20 /min 99 % 99 % 2 L/min 148/70 mm[Hg] Not Available [facility] 2 18:31:05 Date Recorded Heart rate Respiratory rate Body temperature Oxygen saturation Oxygen saturation in Arterial blood by Pulse oximetry Systolic And Diastolic Provider Name and Address Organization Details Last Updated DateTime 0 70 /min 12 /min 98.9 [degF] 100 % 100 % 118/64 mm[Hg] Not Available [facility] 0 14:20:19 Date Recorded Heart rate Oxygen saturation Oxygen saturation in Arterial blood by Pulse oximetry Respiratory rate Body temperature Systolic And Diastolic Provider Name and Address Organization Details Last Updated DateTime 0 84 /min 98 % 98 % 18 /min 98.4 [degF] 102/70 mm[Hg] Not Available [facility] 10:30:06 Social History None recorded. Functional Status None recorded. Mental Status None recorded. Family History Nothing Reported. Medical History Condition Response Diabetes N Coronary Artery Disease N Asthma Y Depression N COPD Y High Cholesterol N Hypertension N Kidney Disease N Gynecological HistoryNo gynecological history recorded. Obstetrics History GPAL:G 0 P 0 0 0 0 Past Encounters Encounter ID Performer Location Encounter Start Date Encounter Closed Date Diagnosis/Indication Diagnosis SNOMED-CT Code Diagnosis ICD10 Code Diagnosis Note [id number] GROVER HYMAN NP [facility] [address] [place] [address] 10/04/2020 14:13:15 10/04/2020 16:11:53 Exposure to communicable disease 729138397 Z20.828 [id number] CHRISTOPHER CASTELLANO [facility] [address] [place] [address] 10/05/2020 10:28:02 10/05/2020 13:07:56 Acute blepharitis 98390189 H01.009 [id number] GROVER HYMAN NP [facility] [address] [place] [address] 09/02/2022 18:18:07 09/03/2022 14:46:40 Acute exacerbation of chronic obstructive pulmonary disease 095826028 J44.1 Acute diana l bronchitis 709430961 J20.8 Health Concerns Section Related Observation LastModified by Organization Detai ls LastModified Time None Recorded Concern Status LastModified by Organization Details LastModified Time None Recorded Advance Directives Directive None Recorded Payers Insurance Date Sequence Insurance Name Policy Number Policy Mann Covered Member ID Mann Member ID Guarantor Name 09/03/2022 1 [facility] - MEDICARE PREFERRED (MEDICARE REPLACEMENT HMO) [employer] Nieves Reddy [id number] Nieves Reddy 09/02/2022 2 [place] [facility] [id number] Nieves Reddy 10/04/2020 1 *SELF PAY* Nieves Reddy [id number] Nieves Reddy 10/05/2020 2 [place] [facility] Nieves Reddy [id number] Nieves Reddy 09/02/2022 1 [facility] - MEDICARE PREFERRED (MEDICARE REPLACEMENT HMO) [employer] Nieves Reddy [id number] Nieves Reddy 10/05/2020 2 [place] [facility] Nieves Reddy [id number] Nieves Reddy 10/04/2020 1 [facility] - MEDICARE PREFERRED (MEDICARE REPLACEMENT HMO) SCALEJANDRA Reddy [id number] Nieves Reddy Notes Date Note Type Note Provider Name and Address Organization Details Recorded Time 10/04/2020 text/html 75 year-old female with history of COPD, Alzheimers, hypothyorid, whose calls to the home for evaluation of cough..Noticed patient woke up with crusted over eyes and a cough with shortness of breath this morning. She had a duoneb nebulizer and used warm packs to the ears which helped. Pt deniees any complaints at this time. She denies shortness of breath or pain or discomfort at this time.Pt has not had any fevers, shortness of breath, cough,She has been feeling well and acting her norm for her. GROVER HYMAN, YUSRA [address], [place], [address], [place] [facility] 10/04/2020 15:54:59 10/05/2020 text/html 75 y/o F with PMHx sig for dementia, asthma, COPD, and DVT not on A/C, who presents w/ c/o bilateral eyelid swelling and watery eye discharge x2 days. evaluated her for this yesterday but symptoms had resolved. Per her she wakes up in the AM and states she cannot open her eyes because her eyelids are painful and swollen and there is a build up of watery discharge. No vision changes or vision loss. No ropey discharge or crusting. No eye pain or painful eye movement. No headache, nasal congestion, fevers, cough, or sob. No sensitivity to light. Had remote cataract surgery. CHRISTOPHER CASTELLANO [address], [place], [address], [place] [facility] 10/05/2020 11:06:21 09/02/2022 text/html 77 year-old female with history of Alzheimers, COPD on O2 2 lpm via [place], whose calls to home to evaluate patient for congested cough and shortness of breath. Began 19 August - increasing shortness of breath with cough. She has a hacking cough so bad that it concerned . The has been giving her duoneb updraft and it has helped her. No fevers, chills but is concerned with her breathing and possible need for prednisone. Pt has not had any change in eating habits. GROVER HYMAN NP [address], [place], [address], [place] [facility] 09/02/2022 19:55:04 OBGyn Episode No OBEpisode recorded.
== END 2025-05-27 14:34 | disposition home or self-care (01) ==
LOC: HO.HSM 13:56
PROVIDERS: PCP Internal Medicine; Visit Provider Psychiatry & Neurology Neurology
DX: G30.1 Alzheimer's disease with late onset (principal); F02.C18 Dementia in other diseases classified elsewhere, severe, with other behavioral disturbance
CPT/HCPCS: 99214

== ENCOUNTER 2025-06-08 15:21 | Outpatient (REF) | payer OTHER, SELFPAY ==
--- NOTE | 2025-06-08 15:48 | EEG_ITS ---
This is a 16 channel EEG with an EKG lead. Patient is reported awake during the tracing. Background EEG rhythm is somewhat contaminated by frontal lead and muscle artifacts. It is low amplitude mixed theta beta with no obvious asymmetry or paroxysmal tendency. Photic stimulation does not produce any significant driving. Hyperventilation is not performed. Cardiac lead does not reveal any significant abnormality. Impression: No significant abnormality noted on this EEG other than mild slowing. MTDD
--- OUTSIDE RECORDS SUMMARY | 2025-06-08 16:09 | XMS_ITS | Clinical Summary ---
Author Organization [address] [facility] Address [address] [place] [address] Phone Care Team Providers Care Vision Teacher Name Role Phone Ruiz Hollis MD Primary Care Provider [phone] Allergies Active Allergy Reactions Criticality Noted Date [...] onset Alzheimer's disea se without behavioral disturbance ([facility] V24, [facility] V28) 01/30/2022 Assessment & Plan (01/21/2025 11:09 [...] obstructive pulmonar y disease with acute exacerbation ([facility] V24, [facility] V28) 04/01/2019 Assessment & Plan (01/21/2025 10:52 [...] Future Thyroid stimulating hormone; Future Pulmonary emphysema ([facility] V24, [facility] V28) 0 06/27/2018 Memory change 04/09/2018 Anxiety 10/12/2016 Aortic atherosclerosis ([facility] V24) 10/12/2016 Overview (08/24/2024): Comments: CT 03/25/14 atherosclerotic calcifications of thoracic aorta Osteopenia 07/10/2016 Eczema 07/26/2015 Encounters Date Type Department Care Team Description 05/20/2025 Telephone Internal Medicine - [place] 175 [facility] [address] [place] [address] Ruiz Hollis MD Referral (Neurology Insurance Referral) 04/26/2025 Telephone Internal Medicine - [place] 175 [facility] [address] [place] [address] Bela Glynn MA faxed order ([place]) 03/23/2025 2:15 PM EDT Office Visit Orthopedic Surgery [facility] 250 [address] [facility] [address] [place] [address] Jc Lopez, DPM Dermatophytosis of nail (Primary Dx); Xerosis of skin; Ingrowing nail from Last 3 Months Immunizations Name Administration [...] PROCEDURE: HISTORICAL COLONOSCOPY UPPER GASTROINTESTINAL ENDOSCOPY PROCEDURE: OR UPPER GI ENDOSCOPY PERFORMED APPENDECTOMY PROCEDURE: HISTORICAL APPENDECTOMY HYSTERECTOMY PROCEDURE: HISTORICAL HYSTERECTOMY APPENDECTOMY PROCEDURE: OR APPENDECTOMY Medical History Medical History Date Comments Diabetes mellitus type 2, uncomplicated ([facility], [facility] V28) 10/12/2016 DX:Diabetes mellitus type 2, uncomplicated (HCC) Hypothyroidism 11/13/2018 DX:Hypothyroidis m Anxiety 10/12/2016 DX:Anxiety Aortic atherosclerosis ([facility] V[facility]) 10/12/2016 DX:Aortic atherosclerosis ([facility]); COMMENT: Comments: CT 03/25/14 atherosclerotic calcifications of thoracic aorta Eczema 07/26/2015 DX:Eczema History of colon polyps 04/19/2016 DX:Histo ry of colon polyps Hyperlipidemia 07/21/2018 DX:Hyperlipidemi a Memory change 04/09/2018 DX:Memory change Osteopenia 07/10/2016 DX:Osteopenia Pulmonary emphysema ([facility] V[facility], [facility] V28) 06/27/2018 DX:Pulmonary emphysema ([facility]) Family History Medical History Relation Name Comments Breast cancer Sister Relation Name Status Comments Sister Social History Tobacco Use Types Packs/Day Years Used Date Smoking Tobacco: Former Cigarettes 1 68.6 S tarted: 11/11/1956 Smokeless Tobacco: Never Alcohol [...] PM EDT Office Visit Orthopedic Surgery - [place] 250 [address] [facility] [address] [place] [phone] Jc Lopez DPM [address] [address] 07/28/2025 1:00 PM EDT Office Visit Internal Medicine - [place] [facility] [address] [place] [phone] Ruiz Hollis MD [address] [address] 02/17/2026 11:30 AM EDT Office Visit Pulmonolgy - [place] 175 [facility] [address] [place] [phone] Alex Villalobos MD [address] [address] Health Maintenance Due Date Last Done Comments Colorectal Cancer Screening: Stool Based Tests (FOBT/FIT) 10/20/2022 Osteoporosis Screening (Bone Density Screening) 10/20/2022 Social Influencers of Health Screening 10/20/2022 COVID-19 Vaccine ( season) 2025 07/21/2024, 08/28/2023, 08/30/2022, Additional history exists Influenza Vaccine (#1) 2025 , 08/17/2023, 07/26/2022, Additional history exists Falls Risk Assessment 01/21/2026 01/21/2025 Medicare Annual Wellness Visit 01/21/2026 01/21/2025 Cholesterol Screening (Lipid Panel) 01/21/2030 01/21/2025, 08/28/2024, 02/05/2023 DTaP,Tdap,and Td Vaccines (4 - Td or Tdap) 11/02/2031 11/02/2021, 02/02/2011, 05/21/2000 Zoster Vaccines Completed 12/14/2021, 05/12/2021 Pneumococcal Vaccine: 50+ Years Completed 07/26/2022, 07/14/2020, 07/26/2015, Additional history exists RSV Immunization Adult Patients Completed 04/10/2024 Depression Screening Completed 01/21/2025 HIB Vaccines Aged Out No longer eligi [...] Late onset Alzheimer's disease without behavioral disturbance ([facility] V24[facility] V28) Chronic obstructive pulmonary disease with acute exacerbation ([facility] V24, [facility] V28) Pure hypercholesterolemia Idiopathic hypotension Acquired hypothyroidism from Last 3 Months or Most Recently Relevant to Health Maintenance Results * (ABNORMAL) Lipid panel with reflex to direct LDL (01/21/2025 11:28 AM EDT) Cholesterol 187 0 - 200 mg/dL LAB CHEMISTRY METHOD 01/21/2025 2:[address] [facility] Triglycerides 107 0 - 150 mg/dL LAB CHEMISTRY METHOD 01/21/2025 2:[address] [facility] HDL 55 >=40 mg/dL LAB CHEMISTRY METHOD 01/21/2025 2:[address] [facility] LDL Calculated 111(H) 0 - 100 mg/dL LAB CHEMISTRY METHOD 01/21/2025 2:[address] [facility] VLDL Cholesterol Chandrakant 21.4 mg/dL LAB CHEMISTRY METHOD 01/21/2025 2:[address] [facility] Non HDL Chol. (LDL+VLDL) 132 <145 mg/dL LAB CHEMISTRY METHOD 01/21/2025 2:[address] [facility] Chol/HDL Ratio 3.4 0.0 - 4.4 LAB CHEMISTRY METHOD 01/21/2025 2:[address] [facility] Blood Venous blood specimen / Unknown Venipuncture / Unknown 01/21/2025 11:28 AM EDT 01/21/2025 12:47 PM EDT Ruiz Hollis MD LAB BLOOD ORDERABLES Final Resul t [facility] [address] [place] [address], from Last 3 Months or Most Recently Relevant to Health Maintenance Insurance [place] Care Teams Vision Teacher Relationship Specialty Start Date End Date Ruiz Hollis MD [address] [place] [address] PCP - General Internal Medicine 10/23/18
--- OUTSIDE RECORDS SUMMARY | 2025-06-08 16:09 | XMS_ITS | Data Portability ---
Author Organization [place] [facility] [place] [address] Care Team Providers Care Special Forces Weapons Sergeant Name Role Phone TONI CASTELLANOS Primary Care Provider [phone] [facility] CARE MANAGEMENT OTHER Assessment Encounter Date Assessment [...] lid hygeine, lid massage. Follow up with odd jobs day worker in 3-5 days. Call for new or worsening sxs. Will call with COVID results. No quarantine recommendation for asymptomatic low risk patient. Thank you for your visit with [facility] today. We cannot always find the exact [...] in your condition between 8am-10pm, [facility] at [phone] to help navigate your care. In order [...] Lab SARS CoV 2 RNA (COVID-19), QL, merchandising execution manager-PCR, respiratory specimen 2019 020 [place] [facility] (Centralized Electronic Ordering - All Locations), Patient Can Go To The Location Of Their Choice, [id number] 0 08:01:13 Referral None recorded. Procedures None recorded. Surgeries None recorded. Imaging None recorded. Medication Orders prednisone 20 mg tablet 2021 022 [email or web address] [facility], [address] [place] [address], [place], [address], 19:09:08 Patient TargetsNo targets recorded. Patient Instructions Encounter Date Encounter Id Patient Instructions Last Modified By Organization Details Last Modified Time 10/04/2020 [id number] Dis. arnel alaniz came to the home [...] re-evaluated. Thank you for your visit with [facility] today. We cannot always find the exact [...] in your condition between 8am-10pm, please call [facility] at [phone] to help navigate your care. [email or web address] Not available 10/04/2020 14:33:48 09/02/2022 [id number] [facility] came to evaluate Nieves for her [...] breath or chest pain, please call 911. [email or web address] Not available 09/02/2022 18:40:47 Reason for Referral None Reported. Results Created Date Observation Date Name Description Value Unit Range Abnormal Flag Note LastModifiedBy Organization Detail LastModifiedTime 10/04/20 20 10/07/2020 SARS CoV 2 RNA (COVI D-19) , QL, merchandising execution manager-P CR, respi rator y speci men covid-19, [...] Go To The Location Of Their Choice, [id number] 10/07/2020 08:01:13 Result Notes None recorded. Medical Equipment None Reported. Allergies Allergen ID Allergen Name Allergen Category Reaction Reaction Severity Criticality Documentation Date Start Date Code Code System Note Provider Name and Address Organization Details Recorded Time 824633 Zithromax medicatio n rash Not available Not available 10/04/2020 4 RxNorm GROVER HYMAN, YUSRA [address] [place], [address], [place] [facility] 0 14:21:56 [...] % 100 % 118/64 mm[Hg] Not Available [facility] 0 14:20:19 Date Recorded Heart rate Oxygen [...] History Nothing Reported. Medical History Condition Response Coronary Artery Disease N Depression N COPD Y Diabetes N Asthma Y High Cholesterol N Hypertension N Kidney Disease N Gynecological HistoryNo gynecological history recorded. Obstetrics History GPAL:G 0 P 0 0 0 0 Past Encounters Encounter ID Performer Location Encounter Start Date Encounter Closed Date Diagnosis/Indication Diagnosis SNOMED-CT Code Diagnosis ICD10 Code Diagnosis Note [id number] GROVER HYMAN NP [facility] [address] [place] [address] 10/04/2020 14:13:15 10/04/2020 16:11:53 Exposure to communicable disease 366415228 Z20.828 [id number] CHRISTOPHER CASTELLANO [facility] [address] [place] [address] 10/05/2020 10:28:02 10/05/2020 13:07:56 Acute blepharitis 92948743 H01.009 [id number] GROVER HYMAN NP [facility] [address] [place] [address] 09/02/2022 18:18:07 09/03/2022 14:46:40 Acute exacerbation of chronic obstructive pulmonary disease 610915582 J44.1 Acute diana l bronchitis 365277915 J20.8 Health Concerns Section Related Observation LastModified by Organization Detai ls LastModified Time None Recorded Concern Status LastModified by Organization Details LastModified Time None Recorded Advance Directives Directive None Recorded Payers Insurance Date Sequence Insurance Name Policy Number Policy Mann Covered Member ID Mann Member ID Guarantor Name 09/03/2022 1 [facility] - MEDICARE PREFERRED (MEDICARE REPLACEMENT HMO) [employer] Nieves Barry [id number] Nieves Reddy 09/02/2022 2 [place] [facility] Nieves Barry [id number] Nieves Barry 10/04/2020 1 *SELF PAY* Nieves Reddy [id number] Nieves Reddy 10/05/2020 2 [place] [facility] Nieves Barry [id number] Nieves Reddy 09/02/2022 1 [facility] - MEDICARE PREFERRED (MEDICARE REPLACEMENT HMO) [employer] Nieves Reddy [id number] Nieves Reddy 10/05/2020 2 [place] [facility] Nieves Barry [id number] Nieves Reddy 10/04/2020 1 [facility] - MEDICARE PREFERRED (MEDICARE REPLACEMENT HMO) [employer] Nieves Reddy [id number] Nieves Reddy OBGyn Episode No OBEpisode recorded.
--- OUTSIDE RECORDS SUMMARY | 2025-06-08 16:09 | XMS_ITS | Clinical Summary ---
Author Organization [facility] Address [address] [place] [address] Care Team Providers Care Assembler Installer General Name Role Phone Ruiz Hollis MD Primary [...] age to complete this topic Care Teams Assembler Installer General Relationship Specialty Start Date End Date Ruiz Hollis MD PCP - General Internal Medicine 04/06/20
== END 2025-06-08 15:22 | disposition home or self-care (01) ==
LOC: HO.NEURO 15:21
PROVIDERS: PCP Internal Medicine; Visit Provider Psychiatry & Neurology Neurology
DX: G40.909 Epilepsy, unspecified, not intractable, without status epilepticus (principal)
CPT/HCPCS: 95816

== ENCOUNTER → 2025-06-08 15:48 | Outpatient (BNV) | payer OTHER, SELFPAY | PROVIDERS: PCP Internal Medicine; Visit Provider Psychiatry & Neurology Neurology | DX: G40.909 Epilepsy, unspecified, not intractable, without status epilepticus (principal) | CPT/HCPCS: 95816 ==

== ENCOUNTER 2025-09-02 15:20 | Outpatient (AMB) | payer OTHER, SELFPAY ==
--- NOTE | 2025-09-02 15:41 | A.OFFVIS_ITS ---
Intake Visit Reasons: after testing Allergies azithromycin Allergy (Verified 06/04/23 12:49) Unknown HPI Comments Details: 80 years old with severe dementia she and probably complex partial seizure disorder resulting in periods of confusion. She is presenting with language disorder associated with dementia. She has experienced a progressive decline in language and cognitive function. Initially, she had periods of silence but now occasionally forms short, meaningful sentences. The dementia affects her ability to recognize family members by name, though she retains facial recognition. Her seizure disorder is well-managed with lamotrigine, and she experiences regular bowel movements with the aid of stool softeners. The patient?s COPD limits her mobility, necessitating the use of a wheelchair for longer distances. Her sleep is prolonged, with increased daytime somnolence. She interacts well with certain caregivers and engages socially with her family, recognizing them primarily through familiarity. [facility] Medical History (Updated 09/02/25 @ 15:44 by Jerica Larkin MD) Severe dementia Complex partial seizures Seizure disorder Alzheimer disease Review of Systems Narrative - Neurological: Reports decline in language function. Denies current seizures. - Respiratory: Reports breathlessness limiting ambulation. - Gastrointestinal: Reports constipation managed with stool softeners. - General: Reports excessive sleep. Physical Exam Neuro Other: Mental Status: Alert and awake, minimal word out put. OTherwise she keeps quite. Cranial Nerves: CN II: Visual sanchez full to confrontation, visual acuity intact. CN III, IV, : Pupils equal, round, reactive to light and accommodation. Extraocular movements are normal. CN V: Facial sensation is normal. CN VII: Facial movements symmetrical. CN VIII: Hearing intact to bedside conversation is normal. CN IX, X: Palate elevates symmetrically. CN XI: Shoulder shrug and head turn symmetrical. CN XII: Tongue midline without atrophy or fasciculations. Extrapyramidal: Full facial expressions and blinking. No rigidity. Movements are appropriate with no tremor or abnormality. Speech: Normal; no dysarthria or tremor. Assessment & Plan Assessment & Plan (1) Alzheimer dementia: Comment: CT brain WO CT brain at [facility] in Nov 2020: mod to severe FPT atrophy MRI brain WO at [facility] in 2019: mod to severe atrophy. Code(s): G30.9 - Alzheimer's disease, unspecified; F02.80 - Dementia in other diseases classified elsewhere, unspecified severity, without behavioral disturbance, psychotic disturbance, mood disturbance, and anxiety Category: Medical Qualifiers: Alzheimer's disease onset: late onset Dementia severity: severe Dementia behavioral or psychological symptom: with other behavioral disturbance Qualified Code(s): G30.1 - Alzheimer's disease with late onset; F02.C18 - Dementia in other diseases classified elsewhere, severe, with other behavioral disturbance (2) Seizure disorder: Comment: EEG at [facility] in May 2025: Slow Code(s): G40.909 - Epilepsy, unspecified, not intractable, without status epilepticus Category: Medical Plan Impression: a: Severe dementia, probably of Alzheimer type 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
--- OUTSIDE RECORDS SUMMARY | 2025-09-02 19:08 | XMS_ITS | Data Portability ---
Author Organization [place] - [facility] [place] [address] Care Team Providers Care Cnc Router Operator Name Role Phone TONI CASTELLANOS Primary Care Provider [facility] CARE MANAGEMENT OTHER Assessment Encounter Date Assessment [...] lid hygeine, lid massage. Follow up with life science technician in 3-5 days. Call for new or worsening sxs. Will call with COVID results. No quarantine recommendation for asymptomatic low risk patient. Thank you for your visit with Khush today. We cannot always find the exact [...] in your condition between 8am-10pm, please call [facility] at [phone] to help navigate your care. In order [...] Lab SARS CoV 2 RNA (COVID-19), QL, potato inspector-PCR, respiratory specimen 2019 020 [place] [facility] (Centralized Electronic Ordering - All Locations), Patient Can Go To The Location Of Their Choice, [address] 0 08:01:13 Referral None recorded. Procedures None recorded. Surgeries None recorded. Imaging None recorded. Medication Orders prednisone 20 mg tablet 2021 022 [email or web address] [facility], [address] [place] [address], [place], [address], 19:09:08 Patient TargetsNo targets recorded. Patient Instructions Encounter Date Encounter Id Patient Instructions Last Modified By Organization Details Last Modified Time 10/04/2020 [id number] Dis. arnel alaniz came to the home [...] re-evaluated. Thank you for your visit with Khush today. We cannot always find the exact [...] in your condition between 8am-10pm, please call [facility] at [phone] to help navigate your care. [email or web address] Not available 10/04/2020 14:33:48 09/02/2022 [id number] [facility] came to evaluate Nieves for her breathing [...] breath or chest pain, please call 911. [email or web address] Not available 09/02/2022 18:40:47 Reason for Referral None Reported. Results Created Date Observation Date Name Description Value Unit Range Abnormal Flag Note LastModifiedBy Organization Detail LastModifiedTime 10/04/20 20 10/07/2020 SARS CoV 2 RNA (COVI D-19) , QL, potato inspector-P CR, respi rator y speci men covid-19, OMAIRA Not Detec migdalia Refer ence range : Not Detec migdalia (NOTE ) This nucle ic acid ampli ficat ion test was devel oped and its perfo rmanc e elire cteri stics deter mined by [facility] [...] Go To The Location Of Their Choice, [facility] 10/07/2020 08:01:13 Result Notes None recorded. Medical Equipment None Reported. Allergies Allergen ID Allergen Name Allergen Category Reaction Reaction Severity Criticality Documentation Date Start Date Code Code System Note Provider Name and Address Organization Details Recorded Time 172547 Zithromax medicatio n rash Not available Not available 10/04/2020 4 RxNorm GROVER HYMAN, YUSRA [address] [place], [address], [place] [facility] 0 14:21:56 [...] % 100 % 118/64 mm[Hg] Not Available [facility] 0 14:20:19 Date Recorded Heart rate Oxygen saturation Oxygen saturation in Arterial blood by Pulse oximetry Respiratory rate Body temperature Systolic And Diastolic Provider Name and Address Organization Details Last Updated DateTime 0 84 /min 98 % 98 % 18 /min 98.4 [degF] 102/70 mm[Hg] Not Available [facility] 0 10:30:06 Social History None recorded. Functional [...] Diagnosis SNOMED-CT Code Diagnosis ICD10 Code Diagnosis IMO Codes Diagnosis Note [id number] GROVER HYMAN NP [facility] [address] [facility] [address] 10/04/2020 14:13:15 10/04/2020 16:11:53 Exposure to communicable disease 621681700 Z20.828 [id number] CHRISTOPHER CASTELLANO [facility] [address] [facility] [place] [address] 10/05/2020 10:28:02 10/05/2020 13:07:56 Acute blepharitis 89287510 H01.009 [id number] GROVER HYMAN NP [facility] [address] [facility] [address] 09/02/2022 18:18:07 09/03/2022 14:46:40 Acute exacerbation of chronic obstructive pulmonary disease 584036693 J44.1 Acute diana l bronchitis 138009802 J20.8 Health Concerns Section Related Observation LastModified by Organization Detai ls LastModified Time None Recorded Concern Status LastModified by Organization Details LastModified Time None Recorded Advance Directives Directive None Recorded Payers Insurance Date Sequence Insurance Name Policy Number Policy Mann Covered Member ID Mann Member ID Guarantor Name 09/03/2022 1 [facility] - MEDICARE PREFERRED (MEDICARE REPLACEMENT HMO) [employer] Nieves Reddy [id number] Nieves Reddy 09/02/2022 2 [place] [facility] Nieves Reddy [id number] Nieves Reddy 10/04/2020 1 *SELF PAY* Nieves Reddy [id number] Nieves Reddy 10/05/2020 2 [place] [facility] Nieves Reddy [id number] Nieves Reddy 09/02/2022 1 [facility] - MEDICARE PREFERRED (MEDICARE REPLACEMENT HMO) [employer] Nieves Reddy [id number] Nieves Reddy 10/05/2020 2 [place] [facility] Nieves Reddy [id number] Nieves Reddy 10/04/2020 1 [facility] - MEDICARE PREFERRED (MEDICARE REPLACEMENT HMO) [place] Nieves Reddy [id number] Nieves Reddy Notes Date Note Type Note [...] her. GROVER HYMAN, YUSRA [address], [place], [address], [place] [facility] 10/04/2020 15:54:59 10/05/2020 text/html [...] cataract surgery. CHRISTOPHER CASTELLANO [address], [place], [address], [place] [facility] 10/05/2020 11:06:21 09/02/2022 text/html 77 year-old female with history of Alzheimers, COPD on O2 2 lpm via [place], whose calls to home to evaluate patient [...] habits. GROVER HYMAN NP [address], [place], [address], [place] [facility] 09/02/2022 19:55:04 OBGyn Episode No OBEpisode recorded.
--- OUTSIDE RECORDS SUMMARY | 2025-09-02 19:08 | XMS_ITS | Clinical Summary ---
Author Organization [facility] Address [address] [place] [address] Phone Care Team Providers Care Pipe Washer Name Role Phone Ruiz Hollis MD Primary Care Provider [phone] Allergies Active Allergy Reactions Criticality Noted Date Comments Azithromycin Rash Low 08/25/2013 Medications ipratropium-al buteroL (DUONEB) 0.5-2.5 mg/3 mL nebulizer solution USE 1 AMPULE IN NEBULIZER EVERY 6 HOURS NEEDED FOR WHEEZING FOR UP TO 30 DAYS 4 Active diaper,brief,a dult,disposabl e (Depend Underwear For Women Lrg) misc 1 Each by Does not apply route 2 times daily. 4 Active nut.tx.gluc intol,lf,soy/f iber (BOOST GLUCOSE CONTROL ORAL) Nutritional Supplements (Boost Glucose Control) Liquid Patient sig: Take 1 Each by mouth 2 Times Daily. 4 Active levETIRAcetam (KEPPRA) 500 mg tablet Take 1 Tablet by mouth every morning. Active polyethylene glycol 3350 (MIRALAX ORAL) Take 17 g by mouth daily for 30 days. 2 Active ammonium lactate (LAC-HYDRIN) 12 % lotion Apply to soles of feet daily. At night wear socks to bed 2 Active cyanocobalamin , vitamin B-12, (VITAMIN B-12 ORAL) Take by mouth. 1000 mg daily Active albuterol 2.5 mg /3 mL (0.083 %) nebulizer solution USE 1 VIAL IN NEBULIZER EVERY 4 HOURS NEEDED FOR WHEEZING 9 Active inhalational spacing device (Aerochamber MV) inhaler 1 Device by Does not apply route as needed (4x a day prn). 9 Active nebulizers misc 1 Units by Does not apply route 4 times daily as needed (sob). 9 Active triamcinolone (KENALOG) 0.1 % cream Apply [...] WEEK DIRECTED BY THE DOCTOR 15 g 5 Active montelukast (SINGULAIR) 10 mg tablet Take 1 tablet (10 mg total) by mouth at bedtime. at bedtime. 30 each 5 5 Active midodrine (PROAMATINE) 2.5 mg tablet Take 1 tablet by mouth twice daily 180 tablet 5 Active levothyroxine (SYNTHROID, LEVOTHROID) 50 mcg tablet Take 1 tablet by mouth once daily 90 tablet 5 Active albuterol sulfate (ProAir RespiClick) 90 mcg/actuation aerosol powdr breath activated Inhale 2 puffs by mouth 4 (four) times a day if needed (wheezing). 1 each 3 5 026 Active predniSONE (DELTASONE) 20 mg tablet Take 1 tablet (20 mg total) by mouth 1 (one) time each day. Active doxycycline (ADOXA) 100 mg tablet Take 1 tablet (100 mg total) by mouth 2 (two) times a day. Take with a full glass of water and do not lie down for at least 30 minutes after Active simvastatin (ZOCOR) 20 mg tablet Take 1 tablet (20 mg total) by mouth at bedtime. at bedtime. 90 tablet 5 Active simvastatin (ZOCOR) 20 mg tablet TAKE 1 TABLET BY MOUTH AT BEDTIME 90 tablet 5 025 Discontin ued(Reord er) Active Problems Problem Noted Date Diagnosed Date Sleep-related hypoxia 02/23/2022 Exercise hypoxemia 01/30/2022 Late onset Alzheimer's disea se without behavioral disturbance ([facility] V24, [facility] V28) 01/30/2022 Assessment & Plan (01/21/2025 11:09 [...] obstructive pulmonar y disease with acute exacerbation ([facility] V24, [facility] V28) 04/01/2019 Assessment & Plan (01/21/2025 10:52 [...] Future Thyroid stimulating hormone; Future Pulmonary emphysema ([facility] V24, [facility] V28) 0 06/27/2018 Memory change 04/09/2018 Anxiety 10/12/2016 Aortic atherosclerosis ([facility] V24) 10/12/2016 Overview (08/24/2024): Comments: CT 03/25/14 atherosclerotic calcifications of thoracic aorta Osteopenia 07/10/2016 Eczema 07/26/2015 Encounters Date Type Department Care Team Description 08/06/2025 Telephone Internal Medicine [facility] [address] [phone] Ruiz Hollis MD 07/28/2025 1:00 PM EDT Office Visit Internal Medicine [facility] [address] [phone] Ruiz Hollis MD Late onset Alzheimer's disease without behavioral disturbance ([facility] V24, [facility] V28) (Primary Dx); Chronic obstructive pulmonary disease, unspecified COPD type ([facility] V24, [facility] V28); Acquired hypothyroidism; Idiopathic hypotension 07/09/2025 2:15 PM EDT Office Visit Pulmonology [facility] [address] [phone] Alex Villalobos MD Chronic obstructive pulmonary disease, unspecified ([facility] V24, [facility] V28) 07/08/2025 Telephone Internal Medicine [facility] [address] [phone] Ruiz Hollis MD 07/08/2025 Telephone Internal Medicine [facility] [address] [phone] Ruiz Hollis MD 07/08/2025 Telephone Pulmonology [facility] [address] [phone] Alex Villalobos MD 06/22/2025 1:30 PM EDT Office Visit Orthopedic Surgery [facility] 250 175 [facility] [address] [place] [phone] Jc Lopez, DPM Dermatophytosis of nail (Primary Dx); Xerosis of skin; Ingrowing nail from Last 3 Months Immunizations Immunization Administration Dates Next Due Influenza trivalent, 0.5mL [...] PROCEDURE: HISTORICAL COLONOSCOPY UPPER GASTROINTESTINAL ENDOSCOPY PROCEDURE: MS UPPER GI ENDOSCOPY PERFORMED APPENDECTOMY PROCEDURE: HISTORICAL APPENDECTOMY HYSTERECTOMY PROCEDURE: HISTORICAL HYSTERECTOMY APPENDECTOMY PROCEDURE: MS APPENDECTOMY Medical History Medical History Date Comments Diabetes mellitus type 2, uncomplicated ([facility] V24, [facility] V28) 10/12/2016 DX:Diabetes mellitus type 2, uncomplicated (HCC) Hypothyroidism 11/13/2018 DX:Hypothyroidis m Anxiety 10/12/2016 DX:Anxiety Aortic atherosclerosis ([facility] V24) 10/12/2016 DX:Aortic atherosclerosis ([facility]); COMMENT: Comments: CT 03/25/14 atherosclerotic calcifications of thoracic aorta Eczema 07/26/2015 DX:Eczema History of colon polyps 04/19/2016 DX:Histo ry of colon polyps Hyperlipidemia 07/21/2018 DX:Hyperlipidemi a Memory change 04/09/2018 DX:Memory change Osteopenia 07/10/2016 DX:Osteopenia Pulmonary emphysema ([facility] V24, [facility] V28) 06/27/2018 DX:Pulmonary emphysema (HCC) Family History Medical History Relation Name Comments Breast cancer Sister Relation Name Status Comments Sister Social History Tobacco Use Types Packs/Day Years Used Date Smoking Tobacco: Former Cigarettes 1 68.8 S tarted: 11/11/1956 Smokeless Tobacco: Never Tobacco Cessation:Counseling Given: Not Answered Alcohol Use Standard Drinks/Week Comments No 0 (1 standard drink = 0.6 oz pur e alcohol) Comments Unknown Sex and Gender Information Value Date Recorded Sex Assigned at Not on file Legal Sex Female 1:19 AM EST Gender Identity Not on file Sexual Orientation Not on file Obstetrics History Last Filed Vital Signs Vital Sign Reading Time Taken Comments Blood Pressure 126/60 07/28/2025 1:32 PM EDT Pulse 66 07/28/2025 1:32 PM EDT Temperature 36.4 C (97.6 F) 07/28/2025 1:32 PM EDT Respiratory Rate 16 07/09/2025 2:30 PM EDT Oxygen Saturation 93% 07/28/2025 1:32 PM EDT Inhaled Oxygen Concentration - - Weight 56.9 kg (125 lb 6.4 oz) 07/28/2025 1:32 P M EDT Height 152.4 cm (5') 07/28/2025 1:32 PM EDT Body Mass Index 24.49 07/28/2025 1:32 PM EDT Plan of Treatment Upcoming Encounters Date Type Department Care Team (Late st Contact Info) Description 09/23/2025 1:30 PM EST Office Visit Orthopedic Surgery - [place] [address] [phone] Jc Lopez DPCarmelo [address] [phone] 01/21/2026 2:30 PM EDT Office Visit Pulmonology - [place] [address] [phone] Alex Villalobos MD [address] [phone] 01/27/2026 1:00 PM EDT Office Visit Internal Medicine - [place] 175 [facility] [address] [place] [phone] Ruiz Hollis MD [address] [phone] Health Maintenance Due Date Last Done Comments Colorectal Cancer Screening: Stool Based Tests (FOBT/FIT) 10/20/2022 Osteoporosis Screening (Bone Density Screening) 10/20/2022 Social Influencers of Health Screening 10/20/2022 COVID-19 Vaccine ( season) 2025 07/21/2024, 08/28/2023, 08/30/2022, Additional history exists Influenza Vaccine (#1) 2025 , 08/17/2023, 07/26/2022, Additional history exists Falls Risk Assessment 01/21/2026 01/21/2025 Medicare Annual Wellness Visit 01/21/2026 01/21/2025 Cholesterol Screening (Lipid Panel) 07/28/2030 07/28/2025, 01/21/2025, 08/28/2024, Additional history exists DTaP,Tdap,and Td Vaccines (4 - Td or [...] Procedure Name Priority Date/Time Associated Diagnosis Comments CBC WITH AUTO DIFFERENTIAL Routine 07/28/2025 2:23 PM EDT Late onset Alzheimer's disease without behavioral disturbance (CMS/HCC V24, CMS/HCC V28) Chronic obstructive pulmonary disease, unspecified COPD type (CMS/HCC V24, CMS/HCC V28) Acquired hypothyroidism Idiopathic hypotension CBC AND DIFFERENTIAL Routine 07/28/2025 2:23 PM EDT Late onset Alzheimer's disease without behavioral disturbance (CMS/HCC V24, CMS/HCC V28) Chronic obstructive pulmonary disease, unspecified COPD type (CMS/HCC V24, CMS/HCC V28) Acquired hypothyroidism Idiopathic hypotension COMPREHENSIVE METABOLIC PANEL Routine 07/28/2025 2:23 PM EDT Late onset Alzheimer's disease without behavioral disturbance (CMS/HCC V24, CMS/HCC V28) Chronic obstructive pulmonary disease, unspecified COPD type (CMS/HCC V24, CMS/HCC V28) Acquired hypothyroidism Idiopathic hypotension LIPID PANEL WITH REFLEX TO DIRECT LDL Routine 07/28/2025 2:23 PM EDT Late onset Alzheimer's disease without behavioral disturbance (CMS/HCC V24, CMS/HCC V28) Chronic obstructive pulmonary disease, unspecified COPD type (CMS/HCC V24, CMS/HCC V28) Acquired hypothyroidism Idiopathic hypotension THYROID STIMULATING HORMONE Routine 07/28/2025 2:23 PM EDT Late onset Alzheimer's disease without behavioral disturbance (CMS/HCC V24, CMS/HCC V28) Chronic obstructive pulmonary disease, unspecified COPD type (CMS/HCC V24, CMS/HCC V28) Acquired hypothyroidism Idiopathic hypotension from Last 3 Months Results * (ABNORMAL) Lipid panel with reflex to direct LDL (07/28/2025 2:23 PM EDT) [facility] Cholesterol 195 0 - 200 mg/dL LAB CHEMISTRY METHOD 07/28/2025 6:23 PM EDT [facility] Triglycerides 102 0 - 150 mg/dL LAB CHEMISTRY METHOD 07/28/2025 6:23 PM EDT [facility] HDL 59 >=40 mg/dL LAB CHEMISTRY METHOD 07/28/2025 6:23 PM EDT [facility] LDL Calculated 116(H) 0 - 100 mg/dL LAB CHEMISTRY METHOD 07/28/2025 6:23 PM EDT [facility] Comment:Estimated LDL Calcul ated using equation: Total cholesterol - HDL cholesterol - (Triglycerides/5) VLDL Cholesterol Chandrakant 20.4 mg/dL LAB CHEMISTRY METHOD 07/28/2025 6:23 PM EDT [facility] Non HDL Chol. (LDL+VLDL) 136 <145 mg/dL LAB CHEMISTRY METHOD 07/28/2025 6:23 PM EDT [facility] Chol/HDL Ratio 3.3 0.0 - 4.4 LAB CHEMISTRY METHOD 07/28/2025 6:23 PM EDT [facility] Blood Venous blood specimen / Unknown Venipuncture / Unknown 07/28/2025 2:23 PM EDT 07/28/2025 2:23 PM EDT Ruiz Hollis MD LAB BLOOD ORDERABLES Final Resul t [facility] [address] [place] [address], * (ABNORMAL) CBC auto differential (07/28/2025 2:23 PM EDT) WBC 5.5 4.8 - 10.8 K/mcL LAB HEMETOLOGY METHOD 07/28/2025 6:49 PM EDT [facility] RBC 3.70(L) 3.80 - 4.80 M/mcL LAB HEMETOLOGY METHOD 07/28/2025 6:49 PM EDT [facility] Hemoglobin 11.1(L) 11.5 - 16.0 g/dL LAB HEMETOLOGY METHOD 07/28/2025 6:49 PM EDT [facility] Hematocrit 35.3 35.0 - 47.0 % LAB HEMETOLOGY METHOD 07/28/2025 6:49 PM EDT [facility] MCV 94.9 79.0 - 98.0 FL LAB HEMETOLOGY METHOD 07/28/2025 6:49 PM EDT [facility] MCH 29.8 27.0 - 32.0 pcg LAB HEMETOLOGY METHOD 07/28/2025 6:49 PM EDT [facility] MCHC 31.4(L) 32.0 - 37.0 g/dL LAB HEMETOLOGY METHOD 07/28/2025 6:49 PM EDT [facility] RDW 12.9 11.0 - 15.0 % LAB HEMETOLOGY METHOD 07/28/2025 6:49 PM [facility] Platelets 150 130 - 400 K/mcL LAB HEMETOLOGY METHOD 07/28/2025 6:49 PM EDT [facility] MPV 12.1(H) 7.0 - 11.0 FL LAB HEMETOLOGY METHOD 07/28/2025 6:49 PM [facility] NRBC 0.0 <1.0 % LAB HEMETOLOGY METHOD 07/28/2025 6:49 PM [facility] NRBC Absolute 0.00 <0.10 K/mcL LAB HEMETOLOGY METHOD 07/28/2025 6:49 PM EDT [facility] Neutrophils Relative 63.8 % LAB HEMETOLOGY METHOD 07/28/2025 6:49 PM EDT [facility] Lymphocytes Relative 26.0 % LAB HEMETOLOGY METHOD 07/28/2025 6:49 PM EDT [facility] Monocytes Relative 3.8 % LAB HEMETOLOGY METHOD 07/28/2025 6:49 PM EDT [facility] Eosinophils Relative 4.9 % LAB HEMETOLOGY METHOD 07/28/2025 6:49 PM EDT [facility] Basophils Relative 1.3 % LAB HEMETOLOGY METHOD 07/28/2025 6:49 PM EDT [facility] Immature Granulocytes Relative 0.2 % LAB HEMETOLOGY METHOD 07/28/2025 6:49 PM EDT [facility] Neutrophils Absolute 3.48 1.50 - 7.00 K/mcL LAB HEMETOLOGY METHOD 07/28/2025 6:49 PM EDT [facility] Lymphocytes Absolute 1.42 1.00 - 5.00 K/mcL LAB HEMETOLOGY METHOD 07/28/2025 6:49 PM EDT [facility] Monocytes Absolute 0.21 0.20 - 1.00 K/mcL LAB HEMETOLOGY METHOD 07/28/2025 6:49 PM EDT [facility] Eosinophils Absolute 0.27 0.00 - 0.50 K/mcL LAB HEMETOLOGY METHOD 07/28/2025 6:49 PM EDT [facility] Basophils Absolute 0.07 0.00 - 0.20 K/mcL LAB HEMETOLOGY METHOD 07/28/2025 6:49 PM EDT [facility] Immature Granulocytes Absolute 0.01 0.00 - 0.03 K/mcL LAB HEMETOLOGY METHOD 07/28/2025 6:49 PM EDT [facility] Blood Venous blood specimen / Unknown Venipuncture / Unknown 07/28/2025 2:23 PM EDT 07/28/2025 2:23 PM EDT us Ruiz Hollis MD LAB BLOOD ORDERABLES Final Resul t [facility] [address] [place] [address], * Thyroid stimulating hormone (07/28/2025 2:23 PM EDT) TSH 2.46 0.40 - 4.00 mcIU/mL LAB CHEMISTRY METHOD 07/28/2025 6:45 PM EDT [facility] Blood Venous blood specimen / Unknown Venipuncture / Unknown 07/28/2025 2:23 PM EDT 07/28/2025 2:23 PM EDT us Ruiz Hollis MD LAB BLOOD ORDERABLES Final Resul t [facility] [address] [place] [address], [place] [phone] * Comprehensive metabolic panel (07/28/2025 2:23 PM EDT) [facility] Sodium 142 133 - 145 mmol/L LAB CHEMISTRY METHOD 07/28/2025 6:23 PM [facility] Potassium 4.0 3.5 - 5.5 mmol/L LAB CHEMISTRY METHOD 07/28/2025 6:23 PM [facility] Chloride 109 96 - 110 mmol/L LAB CHEMISTRY METHOD 07/28/2025 6:23 PM [facility] CO2 27 21 - 32 mmol/L LAB CHEMISTRY METHOD 07/28/2025 6:23 PM [facility] Anion Gap 6 3 - 11 LAB CHEMISTRY METHOD 07/28/2025 6:23 PM [facility] Glucose 97 70 - 100 mg/dL LAB CHEMISTRY METHOD 07/28/2025 6:23 PM [facility] BUN 21 5 - 25 mg/dL LAB CHEMISTRY METHOD 07/28/2025 6:23 PM [facility] Creatinine 0.90 0.50 - 1.10 mg/dL LAB CHEMISTRY METHOD 07/28/2025 6:23 PM [facility] eGFR 65 >=60 mL/min/1. 73m2 LAB CHEMISTRY METHOD 07/28/2025 6:23 PM EDT [facility] Comment:Calculation based on the Chronic Kidney Disease Epidemiology Collaboration (CKD-EPI) equation refit without adjustment for race. BUN/Creatinine Ratio 23.3 LAB CHEMISTRY METHOD 07/28/2025 6:23 PM T [facility] Calcium 9.1 8.5 - 10.5 mg/dL LAB CHEMISTRY METHOD 07/28/2025 6:23 PM [facility] AST (SGOT) 16 10 - 42 unit/L LAB CHEMISTRY METHOD 07/28/2025 6:23 PM [facility] ALT (SGPT) 20 10 - 60 unit/L LAB CHEMISTRY METHOD 07/28/2025 6:23 PM [facility] Alkaline Phosphatase 108 42 - 121 unit/L LAB CHEMISTRY METHOD 07/28/2025 6:23 PM [facility] Total Protein 6.7 6.0 - 8.0 g/dL LAB CHEMISTRY METHOD 07/28/2025 6:23 PM [facility] Albumin 3.7 3.2 - 5.0 g/dL LAB CHEMISTRY METHOD 07/28/2025 6:23 PM [facility] Total Bilirubin 0.4 0.0 - 1.4 mg/dL LAB CHEMISTRY METHOD 07/28/2025 6:23 PM [facility] Blood Venous blood specimen / Unknown Venipuncture / Unknown 07/28/2025 2:23 PM EDT 07/28/2025 2:23 PM EDT us Ruiz Hollis MD LAB BLOOD ORDERABLES Final Resul t [facility] [address] [place] [address], from Last 3 Months Insurance MEDICAID - [place] [employer] Care Teams Pipe Washer Relationship Specialty Start Date End Date Ruiz Hollis MD [address] [facility] [address] [place] [address] PCP - General Internal Medicine 10/23/18
--- OUTSIDE RECORDS SUMMARY | 2025-09-02 19:08 | XMS_ITS | Clinical Summary ---
Author Organization [facility] Address [address] [place] [address] Care Team Providers Care Chair Lift Operator Name Role Phone Ruiz Hollis MD Primary [...] age to complete this topic Care Teams Chair Lift Operator Relationship Specialty Start Date End Date Ruiz Hollis MD PCP - General Internal Medicine 04/06/20
== END 2025-09-02 15:51 | disposition home or self-care (01) ==
LOC: HO.HSM 15:20
PROVIDERS: PCP Internal Medicine; Visit Provider Psychiatry & Neurology Neurology
DX: G30.1 Alzheimer's disease with late onset (principal); F02.C18 Dementia in other diseases classified elsewhere, severe, with other behavioral disturbance; G40.909 Epilepsy, unspecified, not intractable, without status epilepticus
CPT/HCPCS: 99214